=== PATIENT | female | born 1985 | race Caucasian/White ===

== ENCOUNTER 2019-02-18 16:28 | Observation (INO) | payer BC ==
[~2019-02-18] VITALS: Ht 165.1 cm; Wt 62.1 kg
[2019-02-18 19:19] LABS: BILIRUBIN,URINE NEGATIVE (NEGATIVE); BLOOD, URINE NEGATIVE (NEGATIVE); CLARITY/URINE CLOUDY (CLEAR); COLOR,URINE YELLOW (YELLOW); GLUCOSE,URINE NEGATIVE (NEGATIVE); KETONES,URINE NEGATIVE (NEGATIVE); LEUKOCYTE ESTERASE ,URINE NEGATIVE (NEGATIVE); NITRITE, URINE NEGATIVE (NEGATIVE); PH,URINE 7.5 (5.0-8.0); PROTEIN URINE NEGATIVE (NEGATIVE); UROBILINOGEN,URINE 0.2 (0.2-1.0)
== END 2019-02-18 21:15 | disposition home or self-care (01) ==
LOC: SPU 16:28
PROVIDERS: ADMIT Specialist; ATTEND Specialist
DX: O26.892 Other specified pregnancy related conditions, second trimester (principal); R10.2 Pelvic and perineal pain; K62.89 Other specified diseases of anus and rectum; Z3A.34 34 weeks gestation of pregnancy
CPT/HCPCS: 81003; G0378

== ENCOUNTER 2019-02-21 07:20 | Observation (INO) | payer BC ==
[~2019-02-21] VITALS: Ht 165.1 cm; Wt 64.4 kg
[2019-02-21] MEDS ORDERED: TERBUTALINE SULFATE 1 MG/ML VIAL SUBCUT ONE (08:00)
[2019-02-21] MEDS ORDERED: CEFAZOLIN 2 GM IVPB PREMIX 50 ML IV ONE (08:00)
[2019-02-21] MEDS: BETAMET ACET/BETAMET NA PH 30 MG/5 ML VIAL IM SCH ×2 (08:57→09:03)
[2019-02-21] MEDS: LR 1,000 ML IV SCH ×2 (09:45→22:45)
[2019-02-21] MEDS: NIFEdipine (O.B. USE ONLY) 10 MG CAPSULE PO SCH ×4 (09:45→21:00)
[2019-02-21 11:34] LABS: BILIRUBIN,URINE NEGATIVE (NEGATIVE); BLOOD, URINE NEGATIVE (NEGATIVE); CLARITY/URINE HAZY (CLEAR); COLOR,URINE YELLOW (YELLOW); GLUCOSE,URINE NEGATIVE (NEGATIVE); KETONES,URINE NEGATIVE (NEGATIVE); LEUKOCYTE ESTERASE ,URINE 2+ (NEGATIVE); NITRITE, URINE NEGATIVE (NEGATIVE); PROTEIN URINE NEGATIVE (NEGATIVE); UROBILINOGEN,URINE 0.2 (0.2-1.0)
[2019-02-21 12:03] LABS: BACTERIA,URINE FEW /HPF (None Seen); RBC,URINE 0-3 /HPF (0-3)
[2019-02-21] MEDS ORDERED: ceFAZolin SODIUM 1 GM in D5W 50 ML IV SCH (14:00)
[2019-02-21] MEDS ORDERED: ACETAMINOPHEN 500 MG TABLET PO PRN (15:30)
[2019-02-21] MEDS ORDERED: ACETAMINOPHEN 500 MG TABLET ONE (15:43)
[2019-02-21] MEDS: FIORCET PO PRN ×2 (16:52→21:45)
[2019-02-21] MEDS: ceFAZolin SODIUM 1 GM in D5W 50 ML IV SCH (16:53)
[2019-02-22] MEDS: NIFEdipine (O.B. USE ONLY) 10 MG CAPSULE PO SCH ×4 (01:00→21:00)
[2019-02-22] MEDS: ceFAZolin SODIUM 1 GM in D5W 50 ML IV SCH ×3 (01:11→17:03)
[2019-02-23] MEDS: LR 1,000 ML IV SCH (01:00)
[2019-02-23] MEDS: NIFEdipine (O.B. USE ONLY) 10 MG CAPSULE PO SCH ×4 (01:00→12:59)
[2019-02-23] MEDS: ceFAZolin SODIUM 1 GM in D5W 50 ML IV SCH ×2 (01:10→09:13)
== END 2019-02-23 13:40 | disposition home or self-care (01) ==
LOC: SPU 07:20
PROVIDERS: ADMIT Specialist; ATTEND Specialist
DX: O26.892 Other specified pregnancy related conditions, second trimester (principal); R10.2 Pelvic and perineal pain; Z3A.25 25 weeks gestation of pregnancy
CPT/HCPCS: 59025; 81000; 87086; 96365; 96366 ×3; 96372; G0378 ×3; J0690 ×3; J0702 ×2; J3105; J7060 ×2; J7120 ×2

== ENCOUNTER 2019-03-21 18:02 | Observation (INO) | payer BC ==
[~2019-03-21] VITALS: Ht 165.1 cm; Wt 63.5 kg
[2019-03-21] MEDS ORDERED: NIFEdipine (O.B. USE ONLY) 10 MG CAPSULE PO SCH (19:00)
== END 2019-03-21 21:30 | disposition home or self-care (01) ==
LOC: SPU 18:02
PROVIDERS: ADMIT Specialist; ATTEND Specialist
DX: O62.9 Abnormality of forces of labor, unspecified (principal); Z3A.29 29 weeks gestation of pregnancy
CPT/HCPCS: 81002; G0378

== ENCOUNTER 2019-03-22 21:55 | Inpatient (IN) | payer BC ==
[~2019-03-22] VITALS: Ht 165.1 cm; Wt 63.5 kg
[2019-03-22] MEDS ORDERED: BETAMET ACET/BETAMET NA PH 30 MG/5 ML VIAL IM ONE (23:00)
[2019-03-23] MEDS: NIFEdipine (O.B. USE ONLY) 10 MG CAPSULE PO SCH ×7 (01:10→21:25)
[2019-03-23] MEDS: DOCUSATE SODIUM 100 MG CAPSULE PO PRN ×2 (21:26→21:29)
[2019-03-24] MEDS ORDERED: BETAMET ACET/BETAMET NA PH 30 MG/5 ML VIAL IM ONE ×2 (00:15→00:22)
[2019-03-24 01:10] VITALS: BP_SYST 106
[2019-03-24] MEDS: NIFEdipine (O.B. USE ONLY) 10 MG CAPSULE PO SCH ×5 (05:17→21:00)
[2019-03-24] MEDS: DOCUSATE SODIUM 100 MG CAPSULE PO PRN ×2 (09:39→21:00)
[2019-03-25] MEDS: NIFEdipine (O.B. USE ONLY) 10 MG CAPSULE PO SCH ×5 (01:00→17:38)
[2019-03-25] MEDS: DOCUSATE SODIUM 100 MG CAPSULE PO PRN ×2 (09:33→17:37)
== END 2019-03-25 19:10 | disposition home or self-care (01) | DRG 831 ==
LOC: SPU 21:55 → OBSVTOIN 22:45
PROVIDERS: ADMIT Specialist; ATTEND Specialist
DX: O60.03 Preterm labor without delivery, third trimester (principal); O34.33 Maternal care for cervical incompetence, third trimester; Z3A.29 29 weeks gestation of pregnancy
CPT/HCPCS: 81002-TC; G0378; J0702

== ENCOUNTER 2019-05-04 22:27 | Observation (INO) | payer BC | END 2019-05-04 23:58 | disposition home or self-care (01) | LOC: SPU 22:27 | PROVIDERS: ADMIT Specialist; ATTEND Specialist | DX: O62.9 Abnormality of forces of labor, unspecified (principal); Z3A.35 35 weeks gestation of pregnancy | CPT/HCPCS: 81002; G0378 ==

== ENCOUNTER 2019-05-05 14:04 | Inpatient (IN) | payer BC ==
[~2019-05-05] VITALS: Ht 165.1 cm; Wt 65.8 kg
[2019-05-05] MEDS ORDERED: LR 1,000 ML IV ONE (15:09)
[2019-05-05] MEDS ORDERED: LR 1,000 ML IV SCH (15:09)
[2019-05-05] MEDS ORDERED: OXYTOCIN/0.9 % SODIUM CHLORIDE 1,000 ML IV SCH ×2 (15:09→21:10)
[2019-05-05] MEDS ORDERED: AMPICILLIN SODIUM 2 GM in NS 100 ML IV ONE (15:15)
[2019-05-05] MEDS ORDERED: TERBUTALINE SULFATE 1 MG/ML VIAL SUBCUT ONE (15:15)
[2019-05-05] MEDS ORDERED: NALBUPHINE HCL 10 MG/ML AMP IVP PRN (15:15)
[2019-05-05 15:36] LABS: BASOPHILS % (AUTO) 0.3 % (0.0-2.0); EOSINOPHILS # (AUTO) 0.1 K/uL (0.0-0.4); HEMATOCRIT 40.9 % (36-48); HEMOGLOBIN 13.8 g/dL (12.0-16.0); LYMPHOCYTES # (AUTO) 1.5 K/uL (1.0-5.5); LYMPHOCYTES % (AUTO) 11.3 % (20.5-51.5); MEAN CORPUSCULAR HEMOGLOBIN 28 pg (27-31); MEAN CORPUSCULAR HGB CONC 34 % (32-36); MEAN CORPUSCULAR VOLUME 84 fL (79.0-98.0); MONOCYTES # (AUTO) 0.9 K/uL (0.0-1.0); NEUTROPHILS # (AUTO) 10.6 K/uL (1.8-7.7); NEUTROPHILS % (AUTO) 80.4 % (40.0-70.0); PLATELET COUNT (AUTO) 235 K/uL (130-430); RED BLOOD CELL COUNT(AUTO) 4.89 MIL/uL (4.2-6.2); RED CELL DISTRIBUTION WIDTH 13.8 % (9.0-15.0); WHITE BLOOD COUNT (AUTO) 13.2 K/uL (4.8-10.8)
[2019-05-05] MEDS ORDERED: fentaNYL CITRATE/PF 100 MCG/2 ML AMP ONE (16:33)
[2019-05-05] MEDS ORDERED: ROPIVACAINE HCL/PF 0.2% 200 ML ONE (16:33)
[2019-05-05] MEDS ORDERED: LR 500 ML IV ONE (16:58)
[2019-05-05] MEDS ORDERED: ePHEDrine sulfate 50 MG/ML VIAL IVP PRN (17:00)
[2019-05-05] MEDS ORDERED: fentaNYL CITRATE/PF 100 MCG/2 ML AMP EP ONE (17:00)
[2019-05-05] MEDS ORDERED: FENT2mCg/mL-ROPIVA0.2%/NS EPID 200 ML EP SCH (17:00)
[2019-05-05] MEDS ORDERED: AMPICILLIN SODIUM 1 GM in NS 50 ML IV SCH (19:15)
[2019-05-05 20:00] VITALS: BP_SYST 100
[2019-05-05] MEDS ORDERED: TEMAZEPAM 15 MG CAPSULE PO PRN (21:00)
[2019-05-05] MEDS ORDERED: OXYTOCIN/0.9 % SODIUM CHLORIDE 1,000 ML IV ONE (21:10)
[2019-05-05] MEDS ORDERED: METHYLERGONOVINE MALEATE 0.2 MG TABLET PO PRN (21:15)
[2019-05-05] MEDS ORDERED: SENNOSIDES/DOCUSATE SODIUM 1 TAB TABLET(SENOKOT-S) PO PRN (21:15)
[2019-05-05] MEDS ORDERED: ANUSOL 1 EA SUPP.RECT (PREPARATION H) RC PRN (21:15)
[2019-05-05] MEDS ORDERED: DOCUSATE SODIUM 100 MG CAPSULE PO PRN (21:15)
[2019-05-05] MEDS ORDERED: MEASLES,MUMPS&RUBELLA VACC/PF 12500 UNIT/0.5 ML VIAL SUBQ PRN (21:15)
[2019-05-05] MEDS ORDERED: DERMOPLAST SPRAY TP PRN (21:15)
[2019-05-05] MEDS ORDERED: DIPH-TET-PERTUS Vaccine 0.5 ML VIAL (ADACEL) I.M. PRN (21:15)
[2019-05-05] MEDS ORDERED: WITCH HAZEL LEAF 1 MED.PAD MED.PAD TP PRN (21:15)
[2019-05-05] MEDS ORDERED: RHO(D) IMMUNE GLOBULIN/MALTOSE 1500 UNITS/1.3 ML (WINHRO) IM PRN (21:15)
[2019-05-05] MEDS ORDERED: HYDROcodone/ACETAMIN 5-325 MG TAB (NORCO/ VICODIN) PO PRN (21:15)
[2019-05-05] MEDS ORDERED: OXYCODONE/ACETAMINOPHEN 5-325 TABLET PO PRN (21:15)
[2019-05-05] MEDS ORDERED: LANOLIN 7 GM OINT. TP PRN (21:15)
[2019-05-05] MEDS ORDERED: HYDROCORTISONE 0.5%, 28.35 GM TOPICAL CREAM TP PRN (21:15)
[2019-05-06] MEDS ORDERED: IBUPROFEN 600 MG TABLET PO SCH
[2019-05-06] MEDS: ACETAMINOPHEN 325 MG TABLET PO PRN ×2 (04:15→12:49)
[2019-05-06] MEDS ORDERED: ACETAMINOPHEN 325 MG TABLET ONE (04:24)
[2019-05-06 07:22] LABS: BASOPHILS % (AUTO) 0.2 % (0.0-2.0); EOSINOPHILS # (AUTO) 0.1 K/uL (0.0-0.4); EOSINOPHILS % (AUTO) 0.6 % (0.0-4.0); HEMOGLOBIN 12.3 g/dL (12.0-16.0); LYMPHOCYTES # (AUTO) 1.8 K/uL (1.0-5.5); LYMPHOCYTES % (AUTO) 11.2 % (20.5-51.5); MEAN CORPUSCULAR HEMOGLOBIN 28 pg (27-31); MEAN CORPUSCULAR HGB CONC 33 % (32-36); MEAN CORPUSCULAR VOLUME 84 fL (79.0-98.0); MONOCYTES # (AUTO) 1.3 K/uL (0.0-1.0); MONOCYTES % (AUTO) 8.4 % (1.7-9.3); NEUTROPHILS # (AUTO) 12.6 K/uL (1.8-7.7); NEUTROPHILS % (AUTO) 79.6 % (40.0-70.0); PLATELET COUNT (AUTO) 224 K/uL (130-430); RED CELL DISTRIBUTION WIDTH 13.7 % (9.0-15.0); WHITE BLOOD COUNT (AUTO) 15.9 K/uL (4.8-10.8)
[2019-05-06] MEDS ORDERED: HYDROCORTISONE 0.5%, 28.35 GM TOPICAL CREAM TP ONE (08:18)
[2019-05-06] MEDS ORDERED: ROPIVACAINE 40 MG/20 ML AMP EP ONE (08:18)
[2019-05-06] MEDS: OXYCODONE/ACETAMINOPHEN 5-325 TABLET PO PRN ×3 (08:32→21:05)
[2019-05-07] MEDS: ACETAMINOPHEN 325 MG TABLET PO PRN (00:50)
== END 2019-05-07 09:20 | disposition home or self-care (01) | DRG 807 ==
LOC: SPU 14:04
PROVIDERS: ADMIT Specialist; ATTEND Specialist
PROC: 10E0XZZ Delivery of Products of Conception, External Approach (ICD-10-PCS; principal; 2019-05-05)
PROC: 00HU33Z Insertion of Infusion Device into Spinal Canal, Percutaneous Approach (ICD-10-PCS; 2019-05-05)
PROC: 3E0R3BZ Introduction of Anesthetic Agent into Spinal Canal, Percutaneous Approach (ICD-10-PCS; 2019-05-05)
PROC: 0HQ9XZZ Repair Perineum Skin, External Approach (ICD-10-PCS; 2019-05-05)
DX: O60.14X0 Preterm labor third trimester with preterm delivery third trimester, not applicable or unspecified (principal); Z37.0 Single live birth; Z3A.35 35 weeks gestation of pregnancy; O99.345 Other mental disorders complicating the puerperium; F53.0 Postpartum depression; F41.9 Anxiety disorder, unspecified; O99.824 Streptococcus B carrier state complicating childbirth; O43.123 Velamentous insertion of umbilical cord, third trimester; O69.3XX0 Labor and delivery complicated by short cord, not applicable or unspecified; O70.0 First degree perineal laceration during delivery
CPT/HCPCS: 36415; 85025; 86592; 86886; 86900; 86901; J0290; J2590; J2795; J3010; J7120